=== PATIENT | male | born 1980 | race Caucasian/White ===

== ENCOUNTER 2019-09-04 14:46 | Emergency (ER) | payer OTHER ==
[~2019-09-04] VITALS: Ht 180.3 cm; Wt 77.6 kg
--- NOTE | 2019-09-04 15:39 | PHYS DOC ---
Adult General Chief Complaint Chief Complaint: Congestion HPI HPI Patient is a 39 year old male who presents with 3 weeks of cough with green mucus production. Yesterday he states he began having diarrhea with his last d iarrhea stool being this morning. He denies seeing blood in his stool or with wiping but states that the stool itself is black in color. He denies taking any kind of Pepto-Bismol. He states right now he has no pain, nausea, vomiting. He states that he was having left lower abdominal pain that started yesterday. He states last time he took ibuprofen was yesterday and states for the last 3 weeks he has been taking ibuprofen and Tylenol. He states is been having fevers off-and-on. He states he went to urgent care today and they sent him here. He states [facility] for his cough and chest congestion told him he had a virus and that the flu is negative. Review of Systems Review of Systems Constitutional: fever or chills [] Respiratory: cough or denies shortness of breath [] Cardiovascular: Chest congestion GI: LLQ abdominal pain, Denies nausea, vomiting, bloody stools. Black runny diarrhea [] [] All other systems were reviewed and found to be within normal limits, except as documented in this note. Current Medications Current Medications Current Medications Medications (Trade) Dose Ordered Sig/Kim Start Time Stop Time Status Last Admin Dose Admin Acetaminophen (Tylenol) 650 mg 1X ONCE 09/04/19 16:30 09/04/19 16:31 DC 09/04/19 15:55 650 MG Info (CONTRAST GIVEN -- Rx MONITORING) 1 each PRN DAILY PRN 09/04/19 17:15 09/06/19 17:14 Iohexol (Omnipaque 300 Mg/ml) 75 ml 1X ONCE 09/04/19 17:15 09/04/19 17:16 DC 09/04/19 17:12 75 ML Sodium Chloride 1,000 ml @ 1,000 mls/hr 1X ONCE 09/04/19 15:45 09/04/19 16:44 DC 09/04/19 15:54 1,000 MLS/HR Allergies Allergies Allergies Coded Allergies Type Severity Reaction Last Updated Verified No Known Drug Allergies 09/04/19 No Physical Exam Physical Exam Constitutional: Well developed, well nourished, no acute distress, non-toxic appearance. [] HENT: Normocephalic, atraumatic, bilateral external ears normal, oropharynx moist, no oral exudates, nose normal. [] Eyes: PERRLA, EOMI, conjunctiva normal, no discharge. [] Neck: Normal range of motion, no tenderness, supple, no stridor. [] Cardiovascular:Heart rate regular rhythm, no murmur [] Lungs & Thorax: Bilateral breath sounds clear to auscultation [] Abdomen: Bowel sounds normal, soft, LLQ tenderness, no masses, no pulsatile masses. [] Skin:Blotchy. Warm, dry, no erythema, no rash. [] Back: No tenderness, no CVA tenderness. [] Extremities: No tenderness, no cyanosis, no clubbing, ROM intact, no edema. [] Neurologic: Alert and oriented X 3, normal motor function, normal sensory function, no focal deficits noted. [] Psychologic: Affect normal, judgement normal, mood normal. [] Current Patient Data Vital Signs Vital Signs Date Time Temp Pulse Resp B/P (MAP) Pulse Ox O2 Delivery O2 Flow Rate FiO2 09/04/19 17:00 78 18 141/89 (106) 100 Room Air 09/04/19 15: 98.1 98.1 Lab Values Laboratory Tests Test 09/04/19 15:50 09/04/19 16:41 White Blood Count 4.3 x10^3/uL (4.0-11.0) Red Blood Count 4.80 x10^6/uL (4.30-5.70) Hemoglobin 15.1 g/dL (13.0-17.5) Hematocrit 44.3 % (39.0-53.0) Mean Corpuscular Volume 92 fL (79-100) Mean Corpuscular Hemoglobin 32 pg (25-35) Mean Corpuscular Hemoglobin Concent 34 g/dL (31-37) Red Cell Distribution Width 12.8 % (11.5-14.5) Platelet Count 190 x10^3/uL (140-400) Neutrophils (%) (Auto) 45 % (31-73) Lymphocytes (%) (Auto) 37 % (24-48) Monocytes (%) (Auto) 16 % (0-9) H Eosinophils (%) (Auto) 2 % (0-3) Basophils (%) (Auto) 1 % (0-3) Neutrophils # (Auto) 1.9 x10^3/uL (1.8-7.7) Lymphocytes # (Auto) 1.6 x10^3/uL (1.0-4.8) Monocytes # (Auto) 0.7 x10^3/uL (0.0-1.1) Eosinophils # (Auto) 0.1 x10^3/uL (0.0-0.7) Basophils # (Auto) 0.0 x10^3/uL (0.0-0.2) Prothrombin Time 11.4 SEC (11.7-14.0) L Prothrombin Time INR 0.9 (0.8-1.1) Stool Occult Blood Positive (NEG) Sodium Level 140 mmol/L (136-145) Potassium Level 4.0 mmol/L (3.5-5.1) Chloride Level 104 mmol/L (98-107) Carbon Dioxide Level 26 mmol/L (21-32) Anion Gap 10 (6-14) Blood Urea Nitrogen 12 mg/dL (8-26) Creatinine 1.3 mg/dL (0.7-1.3) Estimated GFR (Cockcroft-Gault) 62.1 BUN/Creatinine Ratio 9 (6-20) Glucose Level 99 mg/dL (70-99) Lactic Acid Level 1.3 mmol/L (0.4-2.0) Calcium Level 8.8 mg/dL (8.5-10.1) Total Bilirubin 0.2 mg/dL (0.2-1.0) Aspartate Amino Transferase (AST) 28 U/L (15-37) Alanine Aminotransferase (ALT) 25 U/L (16-63) Alkaline Phosphatase 61 U/L (46-116) Total Protein 7.3 g/dL (6.4-8.2) Albumin 3.5 g/dL (3.4-5.0) Albumin/Globulin Ratio 0.9 (1.0-1.7) L Lipase 156 U/L (73-393) Influenza Type A Antigen Positive (NEGATIVE) Influenza Type B Antigen Negative (NEGATIVE) Urine Collection Type Unknown Urine Color Yellow Urine Clarity Clear Urine pH 6.0 Urine Specific Breaks 1.025 Urine Protein 30 mg/dL (NEG-TRACE) Urine Glucose (UA) Negative mg/dL (NEG) Urine Ketones (Stick) Trace mg/dL (NEG) Urine Blood Negative (NEG) Urine Nitrite Negative (NEG) Urine Bilirubin Negative (NEG) Urine Urobilinogen Dipstick 0.2 mg/dL (0.2 mg/dL) Urine Leukocyte Esterase Negative (NEG) Urine RBC 0 /HPF (0-2) Urine WBC Rare /HPF (0-4) Urine Squamous Epithelial Cells None /LPF Urine Bacteria 0 /HPF (0-FEW) Urine Hyaline Casts Few /HPF Urine Mucus Mod /LPF Laboratory Tests 09/04/19 15:50 Laboratory Tests 09/04/19 15:50 EKG EKG [] Radiology/Procedures Radiology/Procedures [] Impressions: [place] [address] IMAGING REPORT Signed PATIENT: BRAYAN ARIAS AACCOUNT: [id number] : 1980 LOCATION: ER AGE: 39 SEX: M EXAM STATUS: REG ER ORD. PHYSICIAN: IVELISSE COLLAZO APRN REASON: cough PROCEDURE: CHEST PA & LATERAL EXAM: Chest, 2 views. HISTORY: Cough. COMPARISON: None. FINDINGS: 2 views of the chest are obtained. There is no infiltrate, pleural effusion or pneumothorax. The heart is normal in size. There is a chronic appearing right clavicle fracture. IMPRESSION: No acute pulmonary finding. Electronically signed by: Judi Bettencourt MD (09/04/2019 3:43 PM) [place] [id number] DICTATED and SIGNED BY: JUDI BETTENCOURT MD DATE: 09/04/19 [address] [place] [phone] IMAGING REPORT Signed PATIENT: BRAYAN ARIAS AACCOUNT: [id number] : 1980 LOCATION: ER AGE: 39 SEX: M EXAM STATUS: REG ER ORD. PHYSICIAN: IVELISSE COLLAZO APRN REASON: POSITIVE FECAL OCCULT STOOL, OMNI 300, 75 ML IV PROCEDURE: CT ABD PELV W/ IV CONTRST ONLY Examination: CT ABD PELV W/ IV CONTRST ONLY History: Positive fecal occult stool Comparison/Correlation: None Findings: Axial images of the abdomen and pelvis were obtained following IV contrast. Sagittal and coronal reformatted images were provided. Visualized lung bases are clear. Very small pleural effusions noted. Right hepatic dome low-attenuation lesion measuring up to 0.6 cm diameter is present. Additional low-attenuation lesion involving the left hepatic lobe adjacent to the intersegmental fissure measures 0.9 cm diameter. These are too small for characterization but likely represents cysts. Spleen is unremarkable. Pancreas is normal. Adrenal glands are normal. Numerous small bilateral renal cysts are present. Some of the lesions present are mildly hyperdense probably represent hemorrhagic or otherwise complex cysts. No extraluminal gas. No enlarged abdominal or pelvic lymph nodes. Bony structures are unremarkable. Urinary bladder is unremarkable. No bowel obstruction. No inflammatory change involving bowel. Appendix is unremarkable. Impression: No findings of bowel related mass or inflammatory process. Consider direct visualization or other assessment if mass lesion is a persistent concern. Numerous bilateral renal cysts are present. Some of these are of moderately high density as would be expected of a hemorrhagic or other proteinaceous cyst but renal mass lesions are not necessarily excluded. Correlate with prior exams assess stability if available. Further assessment on a nonemergent basis with CT or MRI of the kidneys without and with contrast is recommended. Liver lesions which probably represents cysts may also be assessed at that time. PQRS Compliance Statement: One or more of the following individualized dose reduction techniques were utilized for this examination: 1. Automated exposure control 2. Adjustment of the mA and/or kV according to patient size 3. Use of iterative reconstruction technique Electronically signed by: Red Moon MD (09/04/2019 5:40 PM) [facility] DICTATED and SIGNED BY: RED MOON MD DATE: 09/04/191739 Course & Med Decision Making Course & Med Decision Making Denies shortness of breath, nausea, vomiting, chest pain, LOC, dizziness, headache, nasal congestion, sore throat, ear pain, numbness or tingling, visual changes. Lungs are clear to auscultation in all lobes. Patient states he is concerned that his skin is looking blotchy. Speaks in full clear sentences. Throat is reddened but there is no swelling or exudates. Bilateral tympanic are white. Abdomen is soft but tender at left lower quadrant. Skin is pink warm and dry but is blotchy especially over chest and abdomen. 1630: Positive Flu A. Positive Fecal Occult stool. CT ABD Pelv: Impression: No findings of bowel related mass or inflammatory process. Consider direct visualization or other assessment if mass lesion is a persistent concern. Numerous bilateral renal cysts are present. Some of these are of moderately high density as would be expected of a hemorrhagic or other proteinaceous cyst but renal mass lesions are not necessarily excluded. Correlate with prior exams assess stability if available. Further assessment on a nonemergent basis with CT or MRI of the kidneys without and with contrast is recommended. Liver lesions which probably represents cysts may also be assessed at that time. Rectal Exam: Normal tone, No mass, Positive control Stool: Brown Guaiac: Positive Blood work is unremarkable. I did call and talk to Dr. Patterson concerning the patient's finding of the positive fecal occult stool and he states that since the patient is completely stable he can follow up as outpatient. Patient will be referred to GI doctor. Patient also be given Tamiflu. Patient is stable and in no distress. Vital signs remain within normal limits. Dragon Disclaimer Dragon Disclaimer This electronic medical record was generated, in whole or in part, using a voice recognition dictation system. Departure Departure Impression: Primary Impression: Influenza A Disposition: 01 HOME, SELF-CARE Condition: STABLE Referrals: UNKNOWN PCP NAME (PCP) CHERI MALDONADO MD Patient Instructions: Influenza A (H1N1) Additional Instructions: Take Tylenol only as directed. No Ibuprofen. Take medications with food. Drink plenty of fluids. Follow up with GI as soon as possible. Call them in the morning. Scripts Oseltamivir Phosphate (TAMIFLU) 75 Mg Capsule 1 CAP PO BID, #10 CAP Prov: IVELISSE COLLAZO GROUNDMAN/LINEMAN 09/04/19 IVELISSE COLLAZO GROUNDMAN/LINEMAN Sep 04, 2019 15:39
[2019-09-04] MEDS ORDERED: IV NORMAL SALINE 1000ML BAG 1,000 ML IV ONE (15:45)
--- NOTE | 2019-09-04 15:46 | RAD ---
EXAM: Chest, 2 views. HISTORY: Cough. COMPARISON: None. FINDINGS: 2 views of the chest are obtained. There is no infiltrate, pleural effusion or pneumothorax. The heart is normal in size. There is a chronic appearing right clavicle fracture. IMPRESSION: No acute pulmonary finding. Electronically signed by: Judi Wilkinson MD (09/04/2019 3:43 PM) [facility]
[2019-09-04 15:55] LABS: BASO % 1 % (0-3); EOS # 0.1 x10^3/uL (0.0-0.7); EOS % 2 % (0-3); HEMATOCRIT 44.3 % (39.0-53.0); HEMOGLOBIN 15.1 g/dL (13.0-17.5); LYMPH # 1.6 x10^3/uL (1.0-4.8); LYMPH % 37 % (24-48); MEAN CORPUSCULAR HEMOGLOBIN 32 pg (25-35); MEAN CORPUSCULAR HGB CONC 34 g/dL (31-37); MEAN CORPUSCULAR VOLUME 92 fL (79-100); MONO # 0.7 x10^3/uL (0.0-1.1); MONO % 16 % (0-9); NEUT # 1.9 x10^3/uL (1.8-7.7); NEUT % 45 % (31-73); PLATELET COUNT 190 x10^3/uL (140-400); RED CELL DISTRIBUTION WIDTH 12.8 % (11.5-14.5); WHITE BLOOD COUNT 4.3 x10^3/uL (4.0-11.0)
[2019-09-04 16:06] LABS: PROTHROMBIN TIME PATIENT 11.4 SEC (11.7-14.0)
[2019-09-04 16:09] LABS: FECAL OB PT POSITIVE (NEG)
[2019-09-04 16:10] LABS: CALCIUM 8.8 mg/dL (8.5-10.1); CREATININE 1.3 mg/dL (0.7-1.3); GFR 62.1
[2019-09-04 16:15] LABS: ALBUMIN 3.5 g/dL (3.4-5.0); ALBUMIN/GLOBULIN RATIO 0.9 (1.0-1.7); TOTAL BILIRUBIN 0.2 mg/dL (0.2-1.0); TOTAL PROTEIN 7.3 g/dL (6.4-8.2)
[2019-09-04 16:24] LABS: INFLUENZA A PATIENT POSITIVE (NEGATIVE); INFLUENZA B PATIENT NEGATIVE (NEGATIVE)
[2019-09-04] MEDS ORDERED: ACETAMINOPHEN 325 MG TABLET. PO ONE (16:30)
[2019-09-04 17:02] LABS: BILIRUBIN,URINE NEGATIVE (NEG); CLARITY,URINE CLEAR; COLOR,URINE YELLOW; NITRITE,URINE NEGATIVE (NEG); PROTEIN,URINE 30 mg/dL (NEG-TRACE); UROBILINOGEN,URINE 0.2 mg/dL (0.2 mg/dL)
[2019-09-04 17:08] LABS: BACTERIA,URINE 0 /HPF (0-FEW); RBC,URINE 0 /HPF (0-2); WBC,URINE RARE /HPF (0-4)
[2019-09-04 17:09] LABS: HYALINE CASTS, URINE FEW /HPF
[2019-09-04] MEDS ORDERED: IOHEXOL 300 MG/ML 100ML VIAL. IV ONE (17:15)
[2019-09-04] MEDS ORDERED: CONTRAST GIVEN. MC PRN (17:15)
--- NOTE | 2019-09-04 17:43 | RAD ---
Examination: CT ABD PELV W/ IV CONTRST ONLY History: Positive fecal occult stool Comparison/Correlation: None Findings: Axial images of the abdomen and pelvis were obtained following IV contrast. Sagittal and coronal reformatted images were provided. Visualized lung bases are clear. Very small pleural effusions noted. Right hepatic dome low-attenuation lesion measuring up to 0.6 cm diameter is present. Additional low-attenuation lesion involving the left hepatic lobe adjacent to the intersegmental fissure measures 0.9 cm diameter. These are too small for characterization but likely represents cysts. Spleen is unremarkable. Pancreas is normal. Adrenal glands are normal. Numerous small bilateral renal cysts are present. Some of the lesions present are mildly hyperdense probably represent hemorrhagic or otherwise complex cysts. No extraluminal gas. No enlarged abdominal or pelvic lymph nodes. Bony structures are unremarkable. Urinary bladder is unremarkable. No bowel obstruction. No inflammatory change involving bowel. Appendix is unremarkable. Impression: No findings of bowel related mass or inflammatory process. Consider direct visualization or other assessment if mass lesion is a persistent concern. Numerous bilateral renal cysts are present. Some of these are of moderately high density as would be expected of a hemorrhagic or other proteinaceous cyst but renal mass lesions are not necessarily excluded. Correlate with prior exams assess stability if available. Further assessment on a nonemergent basis with CT or MRI of the kidneys without and with contrast is recommended. Liver lesions which probably represents cysts may also be assessed at that time. PQRS Compliance Statement: One or more of the following individualized dose reduction techniques were utilized for this examination: 1. Automated exposure control 2. Adjustment of the mA and/or kV according to patient size 3. Use of iterative reconstruction technique Electronically signed by: Red Campo MD (09/04/2019 5:40 PM) [facility]
[2019-09-04 18:30] VITALS: BP 131/87
[2019-09-04] MEDS ORDERED: OSEL75CA PO (18:51)
== END 2019-09-04 19:01 | disposition home or self-care (01) ==
LOC: ER 14:46
DX: J10.1 Influenza due to other identified influenza virus with other respiratory manifestations (principal); R19.7 Diarrhea, unspecified
CPT/HCPCS: 36415; 71046; 74177; 80053; 81001; 82274; 83605; 83690; 85025; 85610; 87804; 96360; 99285; J7030; Q9967

== ENCOUNTER → 2019-11-07 | Day surgery (SDC) | payer OTHER ==
[~2019-11-07] MED LIST: IV RINGERS,LACTATED 1000ML 1,000 ML IV SCH; LIDOCAINE 2% PF 5 ML VIAL. ONE; MULT-496 PO; OSEL75CA PO; PROP40TA PO; PROPOFOL 40 ML IV ONE; PROPOFOL 60 ML IV ONE; RANI150C PO
[2019-11-07 10:38] VITALS: BP 133/81
--- NOTE | 2019-11-10 16:06 | PATHOLOGY ---
[facility] Accession Number: [id number] . 01 Material submitted: . sigmoid colon - SIGMOID POLYP BX . 01 Clinical history: . Melena; history of polyps . 02 Diagnosis: Colon biopsy, sigmoid colon polyp: - Hyperplastic polyp. . (JPM:kaylin; 11/10/2019) QMS 11/10/2019 0858 Local . 02 Comment: There are no adenomatous changes or evidence of malignancy. . 02 Electronically signed: . Dixon Arce MD, Pathologist NPI- [id number] . 01 Gross description: . The specimen is received in formalin, labeled "Alfred Valderrama II, sigmoid polyp biopsy". Received is a segment of pale duran soft tissue measuring 0.3 cm in maximum dimensions. The specimen is submitted entirely in cassette A1. (CAA; 11/07/2019) QA/[facility] 11/07/2019 1822 Local . 02 Pathologist provided ICD-10: K63.5 . 02 CPT . 283465 Specimen Comment: A courtesy copy of this report has been sent to [phone], [phone] Specimen Comment: [id number] Specimen Comment: Report sent to / DR ALEXANDER Performed at: 01 [facility] [address], [place] [id number] MD Rick Alves MD Phone: [phone] Performed at: 02 [facility] [place] [address] [place], [place] [id number] MD Dixon Arce MD Phone: [phone]
== END ==
LOC: ENDOS 09:12
PROVIDERS: ATTEND Internal Medicine Gastroenterology
DX: K92.1 Melena (principal); K63.5 Polyp of colon; K29.50 Unspecified chronic gastritis without bleeding; K64.0 First degree hemorrhoids; F41.9 Anxiety disorder, unspecified; F32.9 Major depressive disorder, single episode, unspecified; K21.9 Gastro-esophageal reflux disease without esophagitis; Z86.010 Personal history of colon polyps; Z72.89 Other problems related to lifestyle; Z87.891 Personal history of nicotine dependence; Z98.890 Other specified postprocedural states
CPT/HCPCS: 43235; 45385; J2001; J2704; 45384